=== PATIENT | female | born 1940 | race Two or more races ===

== ENCOUNTER 2018-07-27 18:00 | Inpatient (IN) | payer OTHER, MEDICAID ==
[~2018-07-27] VITALS: Ht 152.4 cm; Wt 55.5 kg
[2018-07-27] MEDS ORDERED: ETOMIDATE (2MG/ML) 20ML VIAL IV ONE ×2 (18:12→18:15)
[2018-07-27] MEDS ORDERED: SUCCINYLCHOLINE CHLORIDE 20 MG/ML 10ML VIAL IV ONE ×2 (18:12→18:15)
[2018-07-27] MEDS ORDERED: MIDAZOLAM DRIP 50 mg/50mL 50 ML IV ONE (18:35)
[2018-07-27 18:39] LABS: Basophils # (auto) 0 uL; Basophils % (auto) 0.2 % (0.0-2.0); Eosinophils # (auto) 0 uL; Eosinophils % (auto) 0.3 % (0.0-7.0); Hematocrit 46.3 % (36.0-46.0); Hemoglobin 14.6 g/dL (12.2-16.2); Lymphocytes # (auto) 0.3 uL; Lymphocytes % (auto) 2.4 % (10.0-50.0); Mean Corpuscular Hemoglobin 28.3 pg (28.0-32.0); Mean Corpuscular Hgb Conc. 31.6 g/dL (32.0-36.0); Mean Corpuscular Volume 89.6 fL (80.0-100.0); Monocytes # (auto) 0.6 uL; Monocytes % (auto) 4.3 % (0.0-12.0); Neutrophils # (auto) 12.9 uL; Neutrophils % (auto) 92.8 % (37.0-80.0); Nucleated Red Blood Cells % 0.1 %; Platelet Count (auto) 400 10^3/uL (140-450); Red Blood Cells 5.17 10^6/uL (4.0-5.20); Red Cell Distribution Width 16.3 % (11.8-14.3); White Blood Cell 13.9 10^3/uL (4.4-10.8)
[2018-07-27] MEDS: MIDAZOLAM DRIP 50 mg/50mL 50 ML IV SCH (18:40)
[2018-07-27 18:44] LABS: Urine Bacteria NONE SEEN /hpf (None Seen); Urine Blood 3+ /uL (Negative); Urine Mucus MODERATE (None Seen); Urine WBC 880 /hpf (0 - 5)
[2018-07-27 18:56] LABS: Albumin 1.6 g/dL (3.4-5.0); BUN/Creatinine Ratio 35.3; Calcium 7.9 mg/dL (8.5-10.1); Magnesium 2.2 mg/dL (1.6-2.6); Potassium 4.5 mmol/L (3.5-5.1)
[2018-07-27 19:01] LABS: Bilirubin, Total 0.6 mg/dL (0.2-1.0); Lactic Acid w/Reflex 3.1 mmol/L (0.4-2.0); Total Protein 6.4 g/dL (6.4-8.2)
[2018-07-27] MEDS ORDERED: LEVOFLOXACIN 500MG 100 ML IV ONE (19:15)
[2018-07-27 20:00] VITALS: BP 113/79
[2018-07-27 22:03] VITALS: BP 113/79
[2018-07-27 22:09] VITALS: BP 113/79
[2018-07-28] VITALS (87 sets, daily range): BP systolic 91–136; BP diastolic 46–76
[2018-07-28] MEDS: MIDAZOLAM DRIP 50 mg/50mL 50 ML IV SCH ×2 (00:25→12:51)
[2018-07-28 05:18] LABS: Basophils # (auto) 0 uL; Basophils % (auto) 0.1 % (0.0-2.0); Eosinophils # (auto) 0 uL; Eosinophils % (auto) 0.2 % (0.0-7.0); Hematocrit 43.9 % (36.0-46.0); Hemoglobin 14.5 g/dL (12.2-16.2); Lymphocytes # (auto) 0.3 uL; Lymphocytes % (auto) 2.6 % (10.0-50.0); Mean Corpuscular Hemoglobin 29.7 pg (28.0-32.0); Mean Corpuscular Volume 89.8 fL (80.0-100.0); Monocytes # (auto) 0.6 uL; Monocytes % (auto) 4.7 % (0.0-12.0); Neutrophils # (auto) 11.8 uL; Neutrophils % (auto) 92.4 % (37.0-80.0); Nucleated Red Blood Cells % 0.1 %; Platelet Count (auto) 344 10^3/uL (140-450); Red Blood Cells 4.89 10^6/uL (4.0-5.20); Red Cell Distribution Width 16.2 % (11.8-14.3); White Blood Cell 12.8 10^3/uL (4.4-10.8)
[2018-07-28 05:35] LABS: BUN/Creatinine Ratio 40.2; Calcium 8.4 mg/dL (8.5-10.1); Potassium 4.7 mmol/L (3.5-5.1)
[2018-07-28] MEDS ORDERED: VANCOMYCIN PER PHARMACY 0 MG IV SCH (05:45)
[2018-07-28] MEDS ORDERED: ALBUMIN 25% 100 ML IV ONE (05:45)
[2018-07-28] MEDS: PIPERACILLIN-TAZOB 3.375GM 100 ML IV SCH ×4 (05:53→23:40)
[2018-07-28] MEDS ORDERED: VANCOMYCIN 1GM/250ML 250 ML IV ONE (06:00)
[2018-07-28] MEDS ORDERED: DEXTROSE (50%) 50ML SYRG IV PRN (07:45)
[2018-07-28] MEDS ORDERED: SOD CHL 0.45% 1,000 ML IV ONE (07:45)
[2018-07-28] MEDS: PANTOPRAZOLE 40 MG/10 ML VIAL IV SCH (09:52)
[2018-07-28] MEDS ORDERED: ENOXAPARIN SOD 30 MG/0.3 ML SYRINGE SC SCH (10:00)
[2018-07-28] MEDS ORDERED: ENOXAPARIN SOD 40 MG/0.4 ML SYRINGE SC SCH (10:00)
[2018-07-28] MEDS ORDERED: LOSA-46 PO (10:31)
[2018-07-28] MEDS ORDERED: FURO20TA PO (10:31)
[2018-07-28] MEDS ORDERED: GABA300C10 PO (10:31)
[2018-07-28] MEDS ORDERED: TRAM50TA2 PO (10:31)
[2018-07-28] MEDS ORDERED: RIVA20TA PO (10:31)
[2018-07-28] MEDS ORDERED: LACT10SO3 PO (10:31)
[2018-07-28] MEDS ORDERED: CHOL20007 OR (10:31)
[2018-07-28] MEDS ORDERED: OMEP20TA PO (10:31)
[2018-07-28] MEDS ORDERED: CYA100I PO (10:31)
[2018-07-28] MEDS ORDERED: LORA-622 PO (10:31)
[2018-07-28] MEDS: InsuLIN REG 1unit/0.01ml Soln (100units/ml) SC SCH ×3 (12:00→23:40)
[2018-07-28] MEDS: ACCU-CHEK COMFORT CURVE STRIP VI SCH ×3 (12:06→23:40)
[2018-07-28] MEDS ORDERED: SODIUM CHLORIDE 0.9% 1,000 ML IV SCH (15:30)
[2018-07-28] MEDS ORDERED: ASPirin-EC 81 mg tab PO ONE (15:30)
[2018-07-28] MEDS ORDERED: IOHEXOL 350 MG/ML 100ML IJ ONE (15:42)
[2018-07-28] MEDS: FREE WATER GT SCH ×2 (17:19→23:40)
[2018-07-28] MEDS ORDERED: FREE WATER GT SCH (18:00)
[2018-07-28 19:37] LABS: Folate (Folic Acid) 8.03 ng/mL (5.38-24)
[2018-07-29] VITALS (105 sets, daily range): BP systolic 85–132; BP diastolic 45–70
[2018-07-29 04:00] LABS: Basophils # (auto) 0 uL; Basophils % (auto) 0.1 % (0.0-2.0); Eosinophils # (auto) 0.1 uL; Hematocrit 35.4 % (36.0-46.0); Hemoglobin 11.3 g/dL (12.2-16.2); Lymphocytes # (auto) 0.2 uL; Lymphocytes % (auto) 1.9 % (10.0-50.0); Mean Corpuscular Hemoglobin 28.7 pg (28.0-32.0); Mean Corpuscular Hgb Conc. 31.9 g/dL (32.0-36.0); Mean Corpuscular Volume 89.8 fL (80.0-100.0); Monocytes # (auto) 0.4 uL; Neutrophils # (auto) 8.1 uL; Nucleated Red Blood Cells % 0.1 %; Platelet Count (auto) 242 10^3/uL (140-450); Red Blood Cells 3.94 10^6/uL (4.0-5.20); Red Cell Distribution Width 16.1 % (11.8-14.3); White Blood Cell 8.8 10^3/uL (4.4-10.8)
[2018-07-29] MEDS ORDERED: SODIUM CHLORIDE 0.9% 1,000 ML IV SCH (04:00)
[2018-07-29 04:25] LABS: Albumin 1.8 g/dL (3.4-5.0); BUN/Creatinine Ratio 42.7; Calcium 7.7 mg/dL (8.5-10.1); Potassium 3.7 mmol/L (3.5-5.1)
[2018-07-29 04:29] LABS: Bilirubin, Total 0.6 mg/dL (0.2-1.0); Total Protein 5.2 g/dL (6.4-8.2)
[2018-07-29 04:30] LABS: Magnesium 2.2 mg/dL (1.6-2.6)
[2018-07-29] MEDS: FREE WATER GT SCH ×4 (05:35→23:32)
[2018-07-29] MEDS: InsuLIN REG 1unit/0.01ml Soln (100units/ml) SC SCH ×4 (05:35→23:32)
[2018-07-29] MEDS: VANCOMYCIN 750 MG in D5W 5% 250 ML IV SCH (05:35)
[2018-07-29] MEDS: ACCU-CHEK COMFORT CURVE STRIP VI SCH ×4 (05:35→23:32)
[2018-07-29] MEDS: PIPERACILLIN-TAZOB 3.375GM 100 ML IV SCH ×4 (05:35→23:32)
[2018-07-29] MEDS ORDERED: FUROSEMIDE 20 MG/2 ML VIAL IV SCH (10:00)
[2018-07-29] MEDS ORDERED: ASPirin-EC 81 mg tab PO SCH (10:00)
[2018-07-29] MEDS: PANTOPRAZOLE 40 MG/10 ML VIAL IV SCH (10:09)
[2018-07-29 10:48] LABS: INR 1.14 (0.9-1.15); Prothrombin Time 12.1 sec (9.27-12.13)
[2018-07-29] MEDS: SODIUM CHLORIDE 0.9% 1,000 ML IV SCH ×2 (14:00→22:11)
[2018-07-29] MEDS: RIVAROXABAN 20 MG TAB PO SCH (18:28)
[2018-07-30] VITALS (73 sets, daily range): BP systolic 106–133; BP diastolic 47–94
[2018-07-30 04:15] LABS: Basophils # (auto) 0 uL; Eosinophils # (auto) 0.1 uL; Eosinophils % (auto) 0.8 % (0.0-7.0); Hematocrit 35.1 % (36.0-46.0); Hemoglobin 11.7 g/dL (12.2-16.2); Lymphocytes # (auto) 0.2 uL; Lymphocytes % (auto) 2.1 % (10.0-50.0); Mean Corpuscular Hemoglobin 29.5 pg (28.0-32.0); Mean Corpuscular Hgb Conc. 33.2 g/dL (32.0-36.0); Mean Corpuscular Volume 88.7 fL (80.0-100.0); Monocytes # (auto) 0.3 uL; Monocytes % (auto) 3.5 % (0.0-12.0); Neutrophils # (auto) 8.5 uL; Neutrophils % (auto) 93.6 % (37.0-80.0); Platelet Count (auto) 259 10^3/uL (140-450); Red Blood Cells 3.96 10^6/uL (4.0-5.20); Red Cell Distribution Width 16.4 % (11.8-14.3); White Blood Cell 9.1 10^3/uL (4.4-10.8)
[2018-07-30 04:34] LABS: Potassium 3.1 mmol/L (3.5-5.1)
[2018-07-30 04:38] LABS: BUN/Creatinine Ratio 46.7; Calcium 7.9 mg/dL (8.5-10.1)
[2018-07-30] MEDS: VANCOMYCIN 750 MG in D5W 5% 250 ML IV SCH (05:17)
[2018-07-30] MEDS: PIPERACILLIN-TAZOB 3.375GM 100 ML IV SCH ×2 (06:17→11:54)
[2018-07-30] MEDS: FREE WATER GT SCH (06:17)
[2018-07-30] MEDS: ACCU-CHEK COMFORT CURVE STRIP VI SCH ×3 (06:54→18:07)
[2018-07-30] MEDS: InsuLIN REG 1unit/0.01ml Soln (100units/ml) SC SCH ×3 (06:54→18:00)
[2018-07-30] MEDS: PANTOPRAZOLE 40 MG/10 ML VIAL IV SCH (09:32)
[2018-07-30] MEDS: POTASSIUM CHL 20MEQ/100ML 100 ML IV SCH ×2 (09:32→10:38)
[2018-07-30 10:08] LABS: Hepatitis B Surface Antibody Negative
[2018-07-30 10:45] LABS: Hepatitis A Total Antibody Positive
[2018-07-30] MEDS ORDERED: LACTULOSE 20Gm/30ML SOLN PO ONE (11:15)
[2018-07-30 13:19] LABS: Hepatitis B Surface Antigen Negative (Negative)
[2018-07-30 13:20] LABS: Hepatitis B Core Total AB Negative; Hepatitis C Antibody Negative (Negative)
[2018-07-30] MEDS ORDERED: cefTRIAXone 1GM/10ml IVPUSH 10 ML IV ONE (17:00)
[2018-07-30] MEDS: RIVAROXABAN 20 MG TAB PO SCH (18:07)
[2018-07-30] MEDS: SODIUM CHLORIDE 0.9% 1,000 ML IV SCH (20:00)
[2018-07-30] MEDS: LACTULOSE 20Gm/30ML SOLN PO SCH (22:00)
[2018-07-31] VITALS (107 sets, daily range): BP systolic 112–155; BP diastolic 51–99
[2018-07-31 05:39] LABS: Basophils # (auto) 0 uL; Basophils % (auto) 0.2 % (0.0-2.0); Eosinophils # (auto) 0.1 uL; Hematocrit 35.3 % (36.0-46.0); Hemoglobin 11.5 g/dL (12.2-16.2); Lymphocytes # (auto) 0.3 uL; Lymphocytes % (auto) 3.4 % (10.0-50.0); Mean Corpuscular Hgb Conc. 32.7 g/dL (32.0-36.0); Mean Corpuscular Volume 88.9 fL (80.0-100.0); Monocytes # (auto) 0.3 uL; Monocytes % (auto) 4.2 % (0.0-12.0); Neutrophils # (auto) 7.2 uL; Neutrophils % (auto) 91.2 % (37.0-80.0); Platelet Count (auto) 273 10^3/uL (140-450); Red Blood Cells 3.98 10^6/uL (4.0-5.20); Red Cell Distribution Width 16.1 % (11.8-14.3); White Blood Cell 7.9 10^3/uL (4.4-10.8)
[2018-07-31 05:55] LABS: Calcium 7.6 mg/dL (8.5-10.1); Potassium 3.7 mmol/L (3.5-5.1)
[2018-07-31 05:57] LABS: BUN/Creatinine Ratio 47.5
[2018-07-31 05:58] LABS: Albumin 1.5 g/dL (3.4-5.0); Magnesium 2.4 mg/dL (1.6-2.6)
[2018-07-31] MEDS: ACCU-CHEK COMFORT CURVE STRIP VI SCH ×4 (06:00→19:36)
[2018-07-31] MEDS: InsuLIN REG 1unit/0.01ml Soln (100units/ml) SC SCH ×4 (06:00→18:00)
[2018-07-31] MEDS: VANCOMYCIN 750 MG in D5W 5% 250 ML IV SCH (06:00)
[2018-07-31 06:11] LABS: Bilirubin, Total 0.4 mg/dL (0.2-1.0); Total Protein 5.4 g/dL (6.4-8.2)
[2018-07-31] MEDS ORDERED: VANCOMYCIN 1,250 MG in D5W 5% 250 ML IV ONE (07:15)
[2018-07-31] MEDS: LACTULOSE 20Gm/30ML SOLN PO SCH ×2 (10:17→22:00)
[2018-07-31] MEDS: cefTRIAXone 1GM/10ml IVPUSH 10 ML IV SCH (10:17)
[2018-07-31] MEDS: PANTOPRAZOLE 40 MG/10 ML VIAL IV SCH (10:21)
[2018-07-31] MEDS: RIVAROXABAN 15 MG TAB PO SCH (19:35)
[2018-08-01] VITALS (68 sets, daily range): BP systolic 108–158; BP diastolic 48–78
[2018-08-01] MEDS: ACCU-CHEK COMFORT CURVE STRIP VI SCH ×4 (00:24→18:23)
[2018-08-01] MEDS: SODIUM CHLORIDE 0.9% 1,000 ML IV SCH (02:00)
[2018-08-01] MEDS ORDERED: VANCOMYCIN 1,250 MG in D5W 5% 250 ML IV ONE (04:00)
[2018-08-01] MEDS ORDERED: VANCOMYCIN 1,250 MG in D5W 5% 250 ML IV SCH (04:00)
[2018-08-01 04:12] LABS: Calcium 7.9 mg/dL (8.5-10.1); Potassium 3.3 mmol/L (3.5-5.1)
[2018-08-01 04:21] LABS: Albumin 1.6 g/dL (3.4-5.0); BUN/Creatinine Ratio 38.2; Bilirubin, Total 0.5 mg/dL (0.2-1.0); Total Protein 5.4 g/dL (6.4-8.2)
[2018-08-01 05:37] LABS: Basophils # (auto) 0 uL; Eosinophils # (auto) 0.1 uL; Eosinophils % (auto) 0.8 % (0.0-7.0); Hematocrit 35.6 % (36.0-46.0); Hemoglobin 11.7 g/dL (12.2-16.2); Lymphocytes # (auto) 0.2 uL; Lymphocytes % (auto) 2.9 % (10.0-50.0); Mean Corpuscular Hemoglobin 29.2 pg (28.0-32.0); Mean Corpuscular Hgb Conc. 32.8 g/dL (32.0-36.0); Mean Corpuscular Volume 88.8 fL (80.0-100.0); Monocytes # (auto) 0.3 uL; Monocytes % (auto) 3.7 % (0.0-12.0); Neutrophils # (auto) 7.8 uL; Neutrophils % (auto) 92.6 % (37.0-80.0); Nucleated Red Blood Cells % 0.1 %; Platelet Count (auto) 307 10^3/uL (140-450); Red Blood Cells 4.01 10^6/uL (4.0-5.20); Red Cell Distribution Width 15.9 % (11.8-14.3); White Blood Cell 8.4 10^3/uL (4.4-10.8)
[2018-08-01] MEDS: InsuLIN REG 1unit/0.01ml Soln (100units/ml) SC SCH ×4 (06:00→18:00)
[2018-08-01] MEDS: cefTRIAXone 1GM/10ml IVPUSH 10 ML IV SCH (09:05)
[2018-08-01] MEDS: RIVAROXABAN 15 MG TAB PO SCH ×2 (09:05→18:22)
[2018-08-01] MEDS: LACTULOSE 20Gm/30ML SOLN PO SCH ×2 (10:16→22:15)
[2018-08-01] MEDS: PANTOPRAZOLE 40 MG/10 ML VIAL IV SCH (10:16)
[2018-08-01] MEDS ORDERED: POTASSIUM EFFERVESENT TAB 25 MEQ GT ONE (11:15)
[2018-08-01] MEDS ORDERED: Glucerna 1.2 Cal 1Liter BOTTLE GT SCH ×2 (11:15)
[2018-08-01] MEDS: FREE WATER GT SCH ×3 (16:04→22:14)
[2018-08-01] MEDS: SOD CHL 0.45% WITH 20MEQ KCL 1,000 ML IV SCH (16:06)
[2018-08-01] MEDS: Pro-Stat SF 30ml Vanilla GT SCH (22:16)
[2018-08-02] VITALS (60 sets, daily range): BP systolic 128–158; BP diastolic 67–87
[2018-08-02] MEDS: FREE WATER GT SCH ×6 (02:00→22:00)
[2018-08-02] MEDS: VANCOMYCIN 1GM/250ML 250 ML IV SCH (04:06)
[2018-08-02 04:12] LABS: Basophils # (auto) 0 uL; Basophils % (auto) 0.1 % (0.0-2.0); Eosinophils # (auto) 0.1 uL; Eosinophils % (auto) 1.3 % (0.0-7.0); Hematocrit 36.6 % (36.0-46.0); Hemoglobin 11.8 g/dL (12.2-16.2); Lymphocytes # (auto) 0.4 uL; Lymphocytes % (auto) 3.8 % (10.0-50.0); Mean Corpuscular Hemoglobin 28.5 pg (28.0-32.0); Mean Corpuscular Hgb Conc. 32.2 g/dL (32.0-36.0); Mean Corpuscular Volume 88.5 fL (80.0-100.0); Monocytes # (auto) 0.6 uL; Monocytes % (auto) 5.9 % (0.0-12.0); Neutrophils # (auto) 8.6 uL; Neutrophils % (auto) 88.9 % (37.0-80.0); Nucleated Red Blood Cells % 0.2 %; Platelet Count (auto) 378 10^3/uL (140-450); Red Blood Cells 4.14 10^6/uL (4.0-5.20); Red Cell Distribution Width 16.3 % (11.8-14.3); White Blood Cell 9.6 10^3/uL (4.4-10.8)
[2018-08-02 04:32] LABS: Potassium 4.7 mmol/L (3.5-5.1)
[2018-08-02 04:35] LABS: Albumin 1.7 g/dL (3.4-5.0); BUN/Creatinine Ratio 40.9
[2018-08-02 04:38] LABS: Bilirubin, Total 0.4 mg/dL (0.2-1.0); Total Protein 4.9 g/dL (6.4-8.2)
[2018-08-02] MEDS: InsuLIN REG 1unit/0.01ml Soln (100units/ml) SC SCH ×4 (06:19→18:00)
[2018-08-02] MEDS: ACCU-CHEK COMFORT CURVE STRIP VI SCH ×4 (06:19→18:14)
[2018-08-02] MEDS: SOD CHL 0.45% WITH 20MEQ KCL 1,000 ML IV SCH ×3 (06:19→18:13)
[2018-08-02] MEDS: cefTRIAXone 1GM/10ml IVPUSH 10 ML IV SCH (09:03)
[2018-08-02] MEDS: RIVAROXABAN 15 MG TAB PO SCH ×2 (09:03→18:14)
[2018-08-02] MEDS: Pro-Stat SF 30ml Vanilla GT SCH ×2 (09:06→22:00)
[2018-08-02] MEDS: PANTOPRAZOLE 40 MG/10 ML VIAL IV SCH (10:24)
[2018-08-02] MEDS: LACTULOSE 20Gm/30ML SOLN PO SCH ×2 (10:24→22:34)
[2018-08-02] MEDS: ONDANSETRON HCL 4 MG/2 ML VIAL IV PRN (14:21)
[2018-08-03] VITALS (75 sets, daily range): BP systolic 126–164; BP diastolic 63–93
[2018-08-03] MEDS: FREE WATER GT SCH ×2 (02:00→06:00)
[2018-08-03] MEDS: VANCOMYCIN 1GM/250ML 250 ML IV SCH (03:26)
[2018-08-03 04:11] LABS: Albumin 1.6 g/dL (3.4-5.0); BUN/Creatinine Ratio 46.9; Calcium 7.6 mg/dL (8.5-10.1); Potassium 4.2 mmol/L (3.5-5.1)
[2018-08-03 04:15] LABS: Bilirubin, Total 0.4 mg/dL (0.2-1.0); Total Protein 5.3 g/dL (6.4-8.2)
[2018-08-03 05:29] LABS: Basophils # (auto) 0 uL; Basophils % (auto) 0.2 % (0.0-2.0); Eosinophils # (auto) 0.1 uL; Eosinophils % (auto) 1.1 % (0.0-7.0); Hematocrit 35.8 % (36.0-46.0); Hemoglobin 11.9 g/dL (12.2-16.2); Lymphocytes # (auto) 0.3 uL; Mean Corpuscular Hemoglobin 29.5 pg (28.0-32.0); Mean Corpuscular Hgb Conc. 33.4 g/dL (32.0-36.0); Mean Corpuscular Volume 88.3 fL (80.0-100.0); Monocytes # (auto) 0.6 uL; Monocytes % (auto) 6.3 % (0.0-12.0); Neutrophils # (auto) 8.5 uL; Neutrophils % (auto) 89.4 % (37.0-80.0); Platelet Count (auto) 375 10^3/uL (140-450); Red Blood Cells 4.05 10^6/uL (4.0-5.20); Red Cell Distribution Width 15.7 % (11.8-14.3); White Blood Cell 9.5 10^3/uL (4.4-10.8)
[2018-08-03] MEDS: SOD CHL 0.45% WITH 20MEQ KCL 1,000 ML IV SCH (05:32)
[2018-08-03] MEDS: InsuLIN REG 1unit/0.01ml Soln (100units/ml) SC SCH ×4 (06:00→18:42)
[2018-08-03] MEDS: ACCU-CHEK COMFORT CURVE STRIP VI SCH ×4 (06:00→18:00)
[2018-08-03] MEDS ORDERED: ALBUMIN 25% 100 ML IV ONE (11:00)
[2018-08-03] MEDS: PANTOPRAZOLE 40 MG/10 ML VIAL IV SCH (11:06)
[2018-08-03] MEDS: cefTRIAXone 1GM/10ml IVPUSH 10 ML IV SCH (11:06)
[2018-08-03] MEDS: LACTULOSE 20Gm/30ML SOLN PO SCH ×2 (11:06→21:55)
[2018-08-03] MEDS: RIVAROXABAN 15 MG TAB PO SCH ×2 (11:10→22:21)
[2018-08-03] MEDS: Pro-Stat SF 30ml Vanilla GT SCH ×2 (11:10→22:20)
[2018-08-03] MEDS ORDERED: FUROSEMIDE 20 MG/2 ML VIAL IV ONE (11:15)
[2018-08-03] MEDS: SODIUM CHLORIDE 0.9% 1,000 ML IV SCH (11:30)
[2018-08-03] MEDS ORDERED: Glucerna 1.2 Cal 1Liter BOTTLE GT SCH (16:30)
[2018-08-03] MEDS: traMADol HCL 50 MG TAB PO PRN (18:50)
[2018-08-04] VITALS (47 sets, daily range): BP systolic 113–145; BP diastolic 52–91
[2018-08-04] MEDS: SODIUM CHLORIDE 0.9% 1,000 ML IV SCH ×2 (03:40→14:30)
[2018-08-04] MEDS: VANCOMYCIN 1GM/250ML 250 ML IV SCH (03:47)
[2018-08-04 04:24] LABS: Potassium 3.3 mmol/L (3.5-5.1)
[2018-08-04 04:27] LABS: Albumin 2.1 g/dL (3.4-5.0); BUN/Creatinine Ratio 55.6; Calcium 7.8 mg/dL (8.5-10.1)
[2018-08-04 04:31] LABS: Bilirubin, Total 0.4 mg/dL (0.2-1.0); Total Protein 5.2 g/dL (6.4-8.2)
[2018-08-04 05:19] LABS: Basophils # (auto) 0 uL; Eosinophils # (auto) 0.1 uL; Eosinophils % (auto) 1.5 % (0.0-7.0); Hematocrit 34.7 % (36.0-46.0); Hemoglobin 11.7 g/dL (12.2-16.2); Lymphocytes # (auto) 0.2 uL; Lymphocytes % (auto) 2.8 % (10.0-50.0); Mean Corpuscular Hemoglobin 29.6 pg (28.0-32.0); Mean Corpuscular Hgb Conc. 33.9 g/dL (32.0-36.0); Mean Corpuscular Volume 87.3 fL (80.0-100.0); Monocytes # (auto) 0.5 uL; Monocytes % (auto) 6.5 % (0.0-12.0); Neutrophils # (auto) 6.9 uL; Neutrophils % (auto) 89.2 % (37.0-80.0); Nucleated Red Blood Cells % 0.1 %; Platelet Count (auto) 354 10^3/uL (140-450); Red Blood Cells 3.97 10^6/uL (4.0-5.20); Red Cell Distribution Width 16.1 % (11.8-14.3); White Blood Cell 7.7 10^3/uL (4.4-10.8)
[2018-08-04] MEDS: ACCU-CHEK COMFORT CURVE STRIP VI SCH ×4 (06:00→18:00)
[2018-08-04] MEDS: InsuLIN REG 1unit/0.01ml Soln (100units/ml) SC SCH ×4 (06:00→18:00)
[2018-08-04] MEDS: traMADol HCL 50 MG TAB PO PRN ×2 (08:27→15:39)
[2018-08-04] MEDS: RIVAROXABAN 15 MG TAB PO SCH ×2 (08:28→18:18)
[2018-08-04] MEDS ORDERED: POTASSIUM CHL 20MEQ/100ML 100 ML IV ONE ×2 (08:30→11:00)
[2018-08-04] MEDS: cefTRIAXone 1GM/50ML D5W 50 ML IV SCH (09:02)
[2018-08-04] MEDS: PANTOPRAZOLE 40 MG/10 ML VIAL IV SCH (09:45)
[2018-08-04] MEDS: LACTULOSE 20Gm/30ML SOLN PO SCH ×2 (09:45→22:00)
[2018-08-04] MEDS: Pro-Stat SF 30ml Vanilla GT SCH ×2 (09:46→22:00)
[2018-08-04] MEDS ORDERED: FUROSEMIDE 20 MG/2 ML VIAL IV ONE (11:00)
[2018-08-04] MEDS ORDERED: ALBUMIN 25% 100 ML IV ONE (11:00)
[2018-08-05] VITALS (25 sets, daily range): BP systolic 102–147; BP diastolic 52–78
[2018-08-05] MEDS: ACCU-CHEK COMFORT CURVE STRIP VI SCH ×4 (00:41→18:00)
[2018-08-05] MEDS: InsuLIN REG 1unit/0.01ml Soln (100units/ml) SC SCH ×4 (00:41→18:35)
[2018-08-05] MEDS: traMADol HCL 50 MG TAB PO PRN ×4 (01:02→21:30)
[2018-08-05 04:10] LABS: Calcium 7.7 mg/dL (8.5-10.1); Potassium 3.5 mmol/L (3.5-5.1)
[2018-08-05] MEDS: VANCOMYCIN 1GM/250ML 250 ML IV SCH (04:11)
[2018-08-05 04:15] LABS: BUN/Creatinine Ratio 57.1
[2018-08-05] MEDS: RIVAROXABAN 15 MG TAB PO SCH ×2 (07:30→18:09)
[2018-08-05] MEDS: cefTRIAXone 1GM/50ML D5W 50 ML IV SCH (09:08)
[2018-08-05] MEDS: LACTULOSE 20Gm/30ML SOLN PO SCH ×2 (10:10→21:53)
[2018-08-05] MEDS: Pro-Stat SF 30ml Vanilla GT SCH ×2 (10:10→18:09)
[2018-08-05] MEDS ORDERED: ALBUTEROL SULF 2.5 MG/0.5ML(0.5%) NEB SOLN NEB PRN (10:30)
[2018-08-05] MEDS: SODIUM CHLORIDE 0.9% 1,000 ML IV SCH (10:30)
[2018-08-05] MEDS: PANTOPRAZOLE 40 MG/10 ML VIAL IV SCH (10:55)
[2018-08-05] MEDS ORDERED: FUROSEMIDE 20 MG/2 ML VIAL IV ONE (12:15)
[2018-08-05] MEDS ORDERED: POTASSIUM CHL 10 Meq TABLET PO ONE (12:15)
[2018-08-05] MEDS ORDERED: ALBUMIN 25% 100 ML IV ONE (12:15)
[2018-08-05] MEDS: DOXYCYCLINE 100MG/250ML 250 ML IV SCH (12:58)
[2018-08-05] MEDS ORDERED: POTASSIUM EFFERVESENT TAB 25 MEQ GT ONE (14:15)
[2018-08-05] MEDS ORDERED: VANCOMYCIN 500 MG in D5W 5% 100 ML IV SCH (16:00)
[2018-08-06] VITALS (22 sets, daily range): BP systolic 125–151; BP diastolic 59–97
[2018-08-06 04:20] LABS: Basophils # (auto) 0 uL; Basophils % (auto) 0.2 % (0.0-2.0); Eosinophils # (auto) 0.1 uL; Eosinophils % (auto) 0.8 % (0.0-7.0); Hematocrit 35.9 % (36.0-46.0); Hemoglobin 11.8 g/dL (12.2-16.2); Lymphocytes # (auto) 0.3 uL; Lymphocytes % (auto) 2.9 % (10.0-50.0); Mean Corpuscular Hemoglobin 29.3 pg (28.0-32.0); Mean Corpuscular Volume 88.9 fL (80.0-100.0); Monocytes # (auto) 0.6 uL; Monocytes % (auto) 7.4 % (0.0-12.0); Neutrophils # (auto) 7.8 uL; Neutrophils % (auto) 88.7 % (37.0-80.0); Platelet Count (auto) 354 10^3/uL (140-450); Red Blood Cells 4.04 10^6/uL (4.0-5.20); Red Cell Distribution Width 16.5 % (11.8-14.3); White Blood Cell 8.7 10^3/uL (4.4-10.8)
[2018-08-06 04:36] LABS: Calcium 7.9 mg/dL (8.5-10.1); Potassium 4.1 mmol/L (3.5-5.1)
[2018-08-06 04:43] LABS: BUN/Creatinine Ratio 72.4
[2018-08-06] MEDS: InsuLIN REG 1unit/0.01ml Soln (100units/ml) SC SCH ×4 (06:00→23:52)
[2018-08-06] MEDS: ACCU-CHEK COMFORT CURVE STRIP VI SCH ×5 (06:02→23:52)
[2018-08-06] MEDS: traMADol HCL 50 MG TAB PO PRN (06:04)
[2018-08-06] MEDS ORDERED: LORazepam 2MG/ML-1ML VIAL IV PRN ×2 (08:00→15:45)
[2018-08-06] MEDS: Pro-Stat SF 30ml Vanilla GT SCH ×2 (08:00→18:00)
[2018-08-06] MEDS: RIVAROXABAN 15 MG TAB PO SCH ×2 (08:21→18:00)
[2018-08-06] MEDS: cefTRIAXone 1GM/50ML D5W 50 ML IV SCH (08:21)
[2018-08-06] MEDS: PANTOPRAZOLE 40 MG/10 ML VIAL IV SCH (10:41)
[2018-08-06] MEDS: LACTULOSE 20Gm/30ML SOLN PO SCH ×2 (10:42→21:46)
[2018-08-06] MEDS ORDERED: LOSARTAN POTASSIUM 25 MG TAB PO ONE (12:00)
[2018-08-06] MEDS ORDERED: FUROSEMIDE 20 MG/2 ML VIAL IV ONE (12:00)
[2018-08-06] MEDS: DOXYCYCLINE 100MG/250ML 250 ML IV SCH ×2 (12:02)
[2018-08-06] MEDS: ONDANSETRON HCL 4 MG/2 ML VIAL IV PRN (15:17)
[2018-08-06] MEDS: PIPERACILLIN-TAZOB 3.375GM 100 ML IV SCH (19:42)
[2018-08-06] MEDS: ATORVASTATIN 20 MG TAB PO SCH (21:46)
[2018-08-07] VITALS (10 sets, daily range): BP systolic 102–141; BP diastolic 27–73
[2018-08-07] MEDS: PIPERACILLIN-TAZOB 3.375GM 100 ML IV SCH (00:45)
[2018-08-07] MEDS: ACCU-CHEK COMFORT CURVE STRIP VI SCH ×4 (06:00→23:48)
[2018-08-07] MEDS: InsuLIN REG 1unit/0.01ml Soln (100units/ml) SC SCH ×3 (06:00→17:38)
[2018-08-07 06:05] LABS: Basophils # (auto) 0 uL; Basophils % (auto) 0.2 % (0.0-2.0); Eosinophils # (auto) 0.1 uL; Eosinophils % (auto) 0.7 % (0.0-7.0); Hematocrit 34.7 % (36.0-46.0); Hemoglobin 11.6 g/dL (12.2-16.2); Lymphocytes # (auto) 0.3 uL; Lymphocytes % (auto) 2.5 % (10.0-50.0); Mean Corpuscular Hemoglobin 29.6 pg (28.0-32.0); Mean Corpuscular Hgb Conc. 33.5 g/dL (32.0-36.0); Mean Corpuscular Volume 88.6 fL (80.0-100.0); Monocytes # (auto) 0.6 uL; Monocytes % (auto) 6.1 % (0.0-12.0); Neutrophils # (auto) 9.4 uL; Neutrophils % (auto) 90.5 % (37.0-80.0); Platelet Count (auto) 364 10^3/uL (140-450); Red Blood Cells 3.91 10^6/uL (4.0-5.20); Red Cell Distribution Width 16.8 % (11.8-14.3); White Blood Cell 10.4 10^3/uL (4.4-10.8)
[2018-08-07 06:14] LABS: Potassium 3.8 mmol/L (3.5-5.1)
[2018-08-07 06:20] LABS: BUN/Creatinine Ratio 83.3; Calcium 8.7 mg/dL (8.5-10.1)
[2018-08-07] MEDS: Pro-Stat SF 30ml Vanilla GT SCH ×2 (08:00→17:38)
[2018-08-07] MEDS ORDERED: TPN PER PHARMACY 0 ML IV SCH (09:30)
[2018-08-07 10:04] LABS: Magnesium 2.1 mg/dL (1.6-2.6)
[2018-08-07 10:08] LABS: Phosphorus 2.6 mg/dL (2.5-4.90); Pre Albumin 8.8 mg/dL (20.0-40.0)
[2018-08-07] MEDS ORDERED: DEXTROSE (50%) 50ML SYRG IV SCH (10:56)
[2018-08-07] MEDS: PIPERACILLIN-TAZOB 2.25GM 50 ML IV SCH ×3 (11:12→23:37)
[2018-08-07] MEDS: PANTOPRAZOLE 40 MG/10 ML VIAL IV SCH (11:12)
[2018-08-07] MEDS ORDERED: fentaNYL CITRATE 100 MCG/2 ML VL ONE (12:59)
[2018-08-07] MEDS ORDERED: MIDAZOLAM HCL 1MG/1ML-2 ML VIAL ONE (12:59)
[2018-08-07] MEDS ORDERED: MIDAZOLAM HCL 1MG/1ML-2 ML VIAL IV ONE ×2 (13:00→13:16)
[2018-08-07] MEDS ORDERED: fentaNYL CITRATE 100 MCG/2 ML VL IV ONE (13:00)
[2018-08-07] MEDS: RIVAROXABAN 15 MG TAB PO SCH ×2 (15:37→17:39)
[2018-08-07] MEDS: LACTULOSE 20Gm/30ML SOLN PO SCH ×2 (15:37→21:47)
[2018-08-07] MEDS: LOSARTAN POTASSIUM 25 MG TAB PO SCH (15:38)
[2018-08-07] MEDS: FUROSEMIDE 20 MG TAB PO SCH (15:38)
[2018-08-07] MEDS ORDERED: TPN PER PHARMACY IV NR ×8 (20:00)
[2018-08-07] MEDS: ATORVASTATIN 20 MG TAB PO SCH (21:47)
[2018-08-08] VITALS (7 sets, daily range): BP systolic 107–138; BP diastolic 52–85
[2018-08-08] MEDS: InsuLIN REG 1unit/0.01ml Soln (100units/ml) SC SCH ×4 (00:02→18:11)
[2018-08-08 04:53] LABS: Albumin 1.7 g/dL (3.4-5.0); Calcium 8.3 mg/dL (8.5-10.1); Magnesium 1.8 mg/dL (1.6-2.6)
[2018-08-08 04:57] LABS: BUN/Creatinine Ratio 47.2; Bilirubin, Total 0.3 mg/dL (0.2-1.0); Phosphorus 2.3 mg/dL (2.5-4.90); Total Protein 5.1 g/dL (6.4-8.2)
[2018-08-08 05:08] LABS: Potassium 2.8 mmol/L (3.5-5.1)
[2018-08-08] MEDS: PIPERACILLIN-TAZOB 2.25GM 50 ML IV SCH ×3 (05:37→17:56)
[2018-08-08] MEDS ORDERED: POTASSIUM EFFERVESENT TAB 25 MEQ GT ONE (05:45)
[2018-08-08] MEDS: ACCU-CHEK COMFORT CURVE STRIP VI SCH ×3 (06:03→17:56)
[2018-08-08] MEDS: POTASSIUM CHL 20MEQ/100ML 100 ML IV SCH ×2 (07:30→07:47)
[2018-08-08] MEDS: Pro-Stat SF 30ml Vanilla GT SCH ×2 (07:47→17:50)
[2018-08-08] MEDS: RIVAROXABAN 15 MG TAB PO SCH ×2 (08:15→17:56)
[2018-08-08] MEDS: LOSARTAN POTASSIUM 25 MG TAB PO SCH (09:46)
[2018-08-08] MEDS: FUROSEMIDE 20 MG TAB PO SCH (09:46)
[2018-08-08] MEDS: LACTULOSE 20Gm/30ML SOLN PO SCH ×2 (09:47→21:40)
[2018-08-08] MEDS: PANTOPRAZOLE 40 MG/10 ML VIAL IV SCH (09:47)
[2018-08-08] MEDS ORDERED: SODIUM PHOSPHATES 20 MEQ in SODIUM CHL 0.9% 100 ML IV ONE (12:30)
[2018-08-08] MEDS ORDERED: TPN PER PHARMACY IV NR ×9 (20:00)
[2018-08-08] MEDS: ATORVASTATIN 20 MG TAB PO SCH (21:40)
[2018-08-09] VITALS: BP 134/76
[2018-08-09] MEDS: PIPERACILLIN-TAZOB 2.25GM 50 ML IV SCH ×4 (00:06→17:56)
[2018-08-09] MEDS: ACCU-CHEK COMFORT CURVE STRIP VI SCH ×4 (00:06→17:39)
[2018-08-09] MEDS: InsuLIN REG 1unit/0.01ml Soln (100units/ml) SC SCH ×4 (00:06→17:57)
[2018-08-09 04:00] VITALS: BP 142/67
[2018-08-09 04:20] LABS: Basophils # (auto) 0 uL; Basophils % (auto) 0.1 % (0.0-2.0); Eosinophils # (auto) 0.1 uL; Eosinophils % (auto) 0.8 % (0.0-7.0); Hematocrit 32.2 % (36.0-46.0); Hemoglobin 10.6 g/dL (12.2-16.2); Lymphocytes # (auto) 0.3 uL; Lymphocytes % (auto) 3.7 % (10.0-50.0); Mean Corpuscular Hemoglobin 29.3 pg (28.0-32.0); Mean Corpuscular Hgb Conc. 32.9 g/dL (32.0-36.0); Mean Corpuscular Volume 88.9 fL (80.0-100.0); Monocytes # (auto) 0.6 uL; Monocytes % (auto) 8.3 % (0.0-12.0); Neutrophils # (auto) 6.1 uL; Neutrophils % (auto) 87.1 % (37.0-80.0); Platelet Count (auto) 314 10^3/uL (140-450); Red Blood Cells 3.63 10^6/uL (4.0-5.20); Red Cell Distribution Width 17.2 % (11.8-14.3)
[2018-08-09 04:35] LABS: Albumin 1.8 g/dL (3.4-5.0); Calcium 8.5 mg/dL (8.5-10.1); Magnesium 1.9 mg/dL (1.6-2.6); Potassium 3.2 mmol/L (3.5-5.1)
[2018-08-09 04:38] LABS: BUN/Creatinine Ratio 78.9; Bilirubin, Total 0.2 mg/dL (0.2-1.0); Phosphorus 2.6 mg/dL (2.5-4.90); Total Protein 5.5 g/dL (6.4-8.2)
[2018-08-09] MEDS: Pro-Stat SF 30ml Vanilla GT SCH ×2 (07:54→12:13)
[2018-08-09] MEDS: LACTULOSE 20Gm/30ML SOLN PO SCH ×2 (10:00→22:38)
[2018-08-09] MEDS: LOSARTAN POTASSIUM 25 MG TAB PO SCH (10:31)
[2018-08-09] MEDS: RIVAROXABAN 15 MG TAB PO SCH ×2 (10:31→17:56)
[2018-08-09] MEDS: PANTOPRAZOLE 40 MG/10 ML VIAL IV SCH (10:31)
[2018-08-09] MEDS: FUROSEMIDE 20 MG TAB PO SCH (10:32)
[2018-08-09] MEDS ORDERED: POTASSIUM CHL 20MEQ/100ML 100 ML IV ONE ×3 (10:35→12:44)
[2018-08-09] MEDS ORDERED: POTASSIUM CHL 20MEQ/100ML 100 ML IV SCH (10:45)
[2018-08-09 12:00] VITALS: BP 133/75
[2018-08-09] MEDS: traMADol HCL 50 MG TAB PO PRN ×3 (15:47→22:39)
[2018-08-09 16:00] VITALS: BP 124/67
[2018-08-09 20:00] VITALS: BP 132/68
[2018-08-09] MEDS ORDERED: TPN PER PHARMACY IV NR ×9 (20:00)
[2018-08-09] MEDS: ATORVASTATIN 20 MG TAB PO SCH (22:38)
[2018-08-10] VITALS: BP 128/67
[2018-08-10] MEDS: InsuLIN REG 1unit/0.01ml Soln (100units/ml) SC SCH ×4 (00:07→18:07)
[2018-08-10] MEDS: PIPERACILLIN-TAZOB 2.25GM 50 ML IV SCH ×4 (00:07→18:07)
[2018-08-10] MEDS: ACCU-CHEK COMFORT CURVE STRIP VI SCH ×4 (00:08→18:07)
[2018-08-10 04:00] VITALS: BP 126/69
[2018-08-10 05:47] LABS: Albumin 1.8 g/dL (3.4-5.0); Calcium 8.3 mg/dL (8.5-10.1); Magnesium 2.2 mg/dL (1.6-2.6)
[2018-08-10 05:51] LABS: BUN/Creatinine Ratio 57.1; Bilirubin, Total 0.3 mg/dL (0.2-1.0); Phosphorus 2.4 mg/dL (2.5-4.90); Total Protein 5.7 g/dL (6.4-8.2)
[2018-08-10 07:50] VITALS: BP 157/73
[2018-08-10] MEDS: RIVAROXABAN 15 MG TAB PO SCH ×3 (08:00→18:07)
[2018-08-10] MEDS: PANTOPRAZOLE 40 MG/10 ML VIAL IV SCH (10:48)
[2018-08-10] MEDS: LACTULOSE 20Gm/30ML SOLN PO SCH (10:49)
[2018-08-10] MEDS: LOSARTAN POTASSIUM 25 MG TAB PO SCH (10:50)
[2018-08-10] MEDS: FUROSEMIDE 20 MG TAB PO SCH (10:51)
[2018-08-10] MEDS: Pro-Stat SF 30ml Vanilla GT SCH ×2 (10:52→18:00)
[2018-08-10 11:46] VITALS: BP 130/80
[2018-08-10] MEDS ORDERED: ATOR20TA50 PO (12:35)
[2018-08-10] MEDS ORDERED: RIV15T PO (12:35)
[2018-08-10] MEDS ORDERED: LEVO500T21 PO (12:35)
[2018-08-10 15:54] VITALS: BP 138/74
[2018-08-10] MEDS ORDERED: MORPHINE SULFATE 4 MG/ML SYR/VIAL IV PRN (18:45)
[2018-08-10 19:55] VITALS: BP 142/70
[2018-08-10] MEDS ORDERED: [UNRECOGNIZED DRUG - OTHER] IV NR ×9 (20:00)
[2018-08-10] MEDS ORDERED: FAT EMULSION IV NR ×9 (20:00)
[2018-08-10] MEDS ORDERED: POTASSIUM CHLORIDE IV NR ×9 (20:00)
[2018-08-10] MEDS ORDERED: POTASSIUM PHOSPHATE IV NR ×9 (20:00)
== END 2018-08-10 20:30 | disposition expired | DRG 870 ==
LOC: ER 18:00 → TELE 18:01 → ICU WEST 07-28 04:11 → DOU IN ICU 08-07 00:12
PROVIDERS: ADMIT Nurse Practitioner Family; ATTEND Internal Medicine
PROC: 5A1955Z Respiratory Ventilation, Greater than 96 Consecutive Hours (ICD-10-PCS; principal; 2018-07-27)
PROC: 0BH17EZ Insertion of Endotracheal Airway into Trachea, Via Natural or Artificial Opening (ICD-10-PCS; 2018-07-27)
PROC: 02H633Z Insertion of Infusion Device into Right Atrium, Percutaneous Approach (ICD-10-PCS; 2018-07-27)
PROC: B246ZZ4 Ultrasonography of Right and Left Heart, Transesophageal (ICD-10-PCS; 2018-08-07)
DX: A41.51 Sepsis due to Escherichia coli [E. coli] (principal); J69.0 Pneumonitis due to inhalation of food and vomit; E43 Unspecified severe protein-calorie malnutrition; J96.01 Acute respiratory failure with hypoxia; G93.41 Metabolic encephalopathy; J15.211 Pneumonia due to Methicillin susceptible Staphylococcus aureus; I63.9 Cerebral infarction, unspecified; I21.A1 Myocardial infarction type 2; N39.0 Urinary tract infection, site not specified; G93.1 Anoxic brain damage, not elsewhere classified; E87.0 Hyperosmolality and hypernatremia; G91.0 Communicating hydrocephalus; G91.9 Hydrocephalus, unspecified; G81.94 Hemiplegia, unspecified affecting left nondominant side; Z66 Do not resuscitate; Z51.5 Encounter for palliative care; I12.9 Hypertensive chronic kidney disease with stage 1 through stage 4 chronic kidney disease, or unspecified chronic kidney disease; N18.9 Chronic kidney disease, unspecified; E11.22 Type 2 diabetes mellitus with diabetic chronic kidney disease; K72.90 Hepatic failure, unspecified without coma; E11.65 Type 2 diabetes mellitus with hyperglycemia; K74.60 Unspecified cirrhosis of liver; Z86.718 Personal history of other venous thrombosis and embolism; E83.51 Hypocalcemia; Z86.711 Personal history of pulmonary embolism; F03.90 Unspecified dementia, unspecified severity, without behavioral disturbance, psychotic disturbance, mood disturbance, and anxiety; D64.9 Anemia, unspecified; G89.4 Chronic pain syndrome; I34.0 Nonrheumatic mitral (valve) insufficiency; I48.91 Unspecified atrial fibrillation; K21.9 Gastro-esophageal reflux disease without esophagitis; Z79.01 Long term (current) use of anticoagulants; Z79.4 Long term (current) use of insulin; Z83.3 Family history of diabetes mellitus; Z68.23 Body mass index [BMI] 23.0-23.9, adult; Z79.899 Other long term (current) drug therapy
CPT/HCPCS: 31500; 36415; 36556; 36600; 51702; 70450; 70551; 71045; 71260; 74177; 80048; 80053; 80061; 80202; 81001; 82040; 82140; 82607; 82746; 82805; 82962; 83036; 83605; 83735; 83880; 84100; 84478; 84484; 85025; 85379; 85610; 86704; 86706; 86708; 86803; 87040; 87070; 87077; 87081; 87086; 87088; 87186; 87205; 87340; 93005; 93306; 93312; 93886; 93970; 94002; 94003; 94640; 95819; 96361; 96365; 96375; 97110; 97163; 99291; C9113; J0330; J0696; J1815; J1956; J2250; J2405; J2543; J3480; J3490; J7060; P9047